=== PATIENT | female | born 1995 | race Caucasian/White ===

== ENCOUNTER 2017-01-16 07:23 | Emergency (ER) | payer OTHER ==
--- NOTE | 2017-01-16 08:17 | RAD ---
PORTABLE CHEST: History: Shortness of breath. FINDINGS: Heart size and mediastinum are within normal limits. The lungs are clear of infiltrates. No significa nt bony findings. There is a scoliotic change to the spine. IMPRESSION: 1. Scoliosis. 2. No active intrathoracic disease. POS: [facility]
== END 2017-01-16 08:19 | disposition home or self-care (01) ==
LOC: ERS 07:23
DX: R06.02 Shortness of breath (principal); J45.909 Unspecified asthma, uncomplicated; F41.9 Anxiety disorder, unspecified; Z79.899 Other long term (current) drug therapy
CPT/HCPCS: 71010